=== PATIENT | female | born 1950 | race Hispanic/Latino ===

== ENCOUNTER → 2017-12-08 | Outpatient (CLI) | payer MEDICARE ==
[~2017-12-08] MED LIST: ASPI-1197 PO; BACL10TA PO; CALC-259 PO; GLIM4TAB3 PO; LINA5TAB PO; LISI-617 PO; METF500T6 PO; PRAV20TA4 PO; TYL3 PO
== END ==
LOC: RAH 11:34
PROVIDERS: ATTEND Internal Medicine
DX: M25.551 Pain in right hip (principal)
CPT/HCPCS: 73502

== ENCOUNTER → 2018-07-22 | Outpatient (CLI) | payer MEDICARE ==
[~2018-07-22] MED LIST changes: +METF-444 PO; -METF500T6 PO
== END | disposition home or self-care (01) ==
LOC: RAH 12:49
PROVIDERS: ATTEND Internal Medicine
DX: Z12.31 Encounter for screening mammogram for malignant neoplasm of breast (principal)
CPT/HCPCS: 77067

== ENCOUNTER → 2018-11-10 | Outpatient (CLI) | payer MEDICARE | END | disposition home or self-care (01) | LOC: RAH 13:18 | PROVIDERS: ATTEND Internal Medicine | DX: M47.816 Spondylosis without myelopathy or radiculopathy, lumbar region (principal); M19.011 Primary osteoarthritis, right shoulder | CPT/HCPCS: 72100; 73030 ==

== ENCOUNTER → 2019-06-21 | Outpatient (CLI) | payer MEDICARE ==
[~2019-06-21] MED LIST changes: -GLIM4TAB3 PO; +GLIM4TAB5 PO
== END | disposition home or self-care (01) ==
LOC: RAH 12:22
PROVIDERS: ATTEND Internal Medicine
DX: M50.30 Other cervical disc degeneration, unspecified cervical region (principal); M16.12 Unilateral primary osteoarthritis, left hip; M17.12 Unilateral primary osteoarthritis, left knee; Z96.652 Presence of left artificial knee joint
CPT/HCPCS: 72040; 73502; 73562

== ENCOUNTER → 2020-03-25 | Outpatient (CLI) | payer OTHER, MEDICARE | END | disposition home or self-care (01) | LOC: RAH 15:01 | PROVIDERS: ATTEND Internal Medicine | DX: Z12.31 Encounter for screening mammogram for malignant neoplasm of breast (principal) ==

== ENCOUNTER → 2020-10-15 | Outpatient (CLI) | payer OTHER, MEDICARE ==
[~2020-10-15] MED LIST changes: +GLIM4TAB36 PO; -GLIM4TAB5 PO
== END | disposition home or self-care (01) ==
LOC: RAH 15:31
PROVIDERS: ATTEND Internal Medicine
DX: M25.552 Pain in left hip (principal); M25.562 Pain in left knee; W19.XXXS Unspecified fall, sequela
CPT/HCPCS: 73030; 73502; 73562

== ENCOUNTER → 2021-01-07 | Outpatient (CLI) | payer OTHER, MEDICARE ==
[~2021-01-07] MED LIST changes: -LISI-617 PO; +LISI-809 PO
== END | disposition home or self-care (01) ==
LOC: RAH 14:33
PROVIDERS: ATTEND Internal Medicine
DX: M79.642 Pain in left hand (principal); M79.89 Other specified soft tissue disorders; I70.298 Other atherosclerosis of native arteries of extremities, other extremity
CPT/HCPCS: 73090; 73110; 73130

== ENCOUNTER → 2021-07-09 | Outpatient (CLI) | payer OTHER, MEDICARE | END | disposition home or self-care (01) | LOC: RAH 13:43 | PROVIDERS: ATTEND Internal Medicine | DX: M85.851 Other specified disorders of bone density and structure, right thigh (principal); M51.36 Other intervertebral disc degeneration, lumbar region; M25.561 Pain in right knee; M25.551 Pain in right hip | CPT/HCPCS: 73502; 73562 ==

== ENCOUNTER → 2021-11-26 | Outpatient (CLI) | payer OTHER, MEDICARE ==
[~2021-11-26] MED LIST changes: -LISI-809 PO; +LISI5TAB21 PO
== END | disposition home or self-care (01) ==
LOC: RAH 13:57
PROVIDERS: ATTEND Internal Medicine
DX: Z12.31 Encounter for screening mammogram for malignant neoplasm of breast (principal)
CPT/HCPCS: 77067

== ENCOUNTER 2021-12-21 13:09 | Emergency (ER) | payer OTHER, MEDICARE ==
[~2021-12-21] VITALS: Ht 152.4 cm; Wt 74.4 kg
[2021-12-21] MEDS ORDERED: FAMOTIDINE 20MG VIAL IV ONE ×2 (13:51→14:00)
[2021-12-21] MEDS ORDERED: SOLU-MEDROL 125MG VIAL ONE (13:51)
[2021-12-21] MEDS ORDERED: DiphenhydrAMINE HCL 50 MG/ML VIAL ONE (13:51)
[2021-12-21] MEDS ORDERED: SOLU-MEDROL 125MG VIAL IVP ONE (14:00)
[2021-12-21] MEDS ORDERED: DiphenhydrAMINE HCL 50 MG/ML VIAL IV ONE (14:00)
[2021-12-21] MEDS ORDERED: PRED20TA3 PO (14:37)
[2021-12-21] MEDS ORDERED: DIPH25CA85 PO (14:37)
[2021-12-21 14:43] VITALS: BP 111/61
== END 2021-12-21 14:59 | disposition home or self-care (01) ==
LOC: EDH 13:09
DX: T78.49XA Other allergy, initial encounter (principal); L29.9 Pruritus, unspecified; E11.9 Type 2 diabetes mellitus without complications; E78.00 Pure hypercholesterolemia, unspecified; I10 Essential (primary) hypertension; F32.A Depression, unspecified; M19.90 Unspecified osteoarthritis, unspecified site; Z90.49 Acquired absence of other specified parts of digestive tract; Z88.0 Allergy status to penicillin; Z79.899 Other long term (current) drug therapy; Z79.84 Long term (current) use of oral hypoglycemic drugs; Z79.82 Long term (current) use of aspirin; Z98.890 Other specified postprocedural states; Y92.89 Other specified places as the place of occurrence of the external cause
CPT/HCPCS: 96374; 96375; 99284; J1200; J2930; J3490

== ENCOUNTER → 2022-12-02 | Outpatient (CLI) | payer OTHER, MEDICARE ==
[~2022-12-02] MED LIST changes: +DIPH25CA85 PO; +PRED20TA3 PO
== END | disposition home or self-care (01) ==
LOC: RAH 13:08
PROVIDERS: ATTEND Internal Medicine
DX: Z12.31 Encounter for screening mammogram for malignant neoplasm of breast (principal)
CPT/HCPCS: 77067

== ENCOUNTER → 2024-05-18 | Outpatient (CLI) | payer OTHER, MEDICARE | END | disposition home or self-care (01) | LOC: RAH 13:22 | PROVIDERS: ATTEND Internal Medicine | DX: Z12.31 Encounter for screening mammogram for malignant neoplasm of breast (principal); R92.323 Mammographic fibroglandular density, bilateral breasts | CPT/HCPCS: 77067 ==

== ENCOUNTER → 2024-09-05 | Outpatient (CLI) | payer OTHER, MEDICARE ==
--- NOTE | 2024-09-05 16:02 | HMCIMG ---
FOOT COMP 3+VWS RT HISTORY: Status post fall COMPARISON: None TECHNIQUE: 3 images of right foot were obtained. 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 There is calcaneal spur. There may be subluxation of the second and third metatarsophalangeal joints versus poor positioning. There is no acute displaced fracture or dislocation. Degenerative changes are seen. IMPRESSION: 1. Findings as described above.
--- NOTE | 2024-09-05 16:02 | HMCIMG ---
ANKLE COMP 3VWS RT HISTORY: Status post fall COMPARISON: None TECHNIQUE: 3 images of right ankle were obtained. FINDINGS: There is no acute displaced fracture or dislocation. There is soft tissue swelling. There is calcaneal spur. Degenerative changes are seen. IMPRESSION: 1. Findings as described above.
--- NOTE | 2024-09-05 16:03 | HMCIMG ---
TIBIA/FIBULA 2VWS LT HISTORY: Status post fall COMPARISON: None TECHNIQUE: 4 images of left tibia and fibula were obtained. FINDINGS: There is no acute displaced fracture or dislocation. There is soft tissue swelling. 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 There is a calcaneal spur. Degenerative changes are seen. IMPRESSION: 1. Findings as described above.
== END | disposition home or self-care (01) ==
LOC: RAH 15:02
PROVIDERS: ATTEND Internal Medicine
DX: S99.911A Unspecified injury of right ankle, initial encounter (principal); M19.071 Primary osteoarthritis, right ankle and foot; M77.31 Calcaneal spur, right foot; M19.09 Primary osteoarthritis, other specified site; M79.89 Other specified soft tissue disorders; M79.671 Pain in right foot; M79.605 Pain in left leg; W19.XXXA Unspecified fall, initial encounter; Y93.89 Activity, other specified; Y92.89 Other specified places as the place of occurrence of the external cause; Y99.8 Other external cause status
CPT/HCPCS: 73590; 73610; 73630

== ENCOUNTER → 2025-06-06 | Outpatient (CLI) | payer OTHER, MEDICARE ==
[~2025-06-06] MED LIST changes: -PRAV20TA4 PO; +PRAV20TA59 PO
== END | disposition home or self-care (01) ==
LOC: RAH 13:55
PROVIDERS: ATTEND Internal Medicine
DX: Z12.31 Encounter for screening mammogram for malignant neoplasm of breast (principal)
CPT/HCPCS: 77067